=== PATIENT | male | born 1995 | race African-American/Black ===

== ENCOUNTER 2023-08-28 11:56 | Emergency (ER) | payer OTHER, SELFPAY ==
[2023-08-28] MEDS: DILAUDID 1 MG IM (12:23)
--- NOTE | 2023-08-28 14:02 | ED.MUSCINJ ---
HPI-Injury
<Yasmani Murdock PA-C - Last Filed: 09/02/23 09:02>
General
Chief Complaint: Musculo-Skeletal Complaint
Source: patient
Exam Limitations: none
Time Seen by Provider: 08/28/23 12:10
Travel History
Have you had any contact with someone who has COVID-19?: No
Do you have any symptoms of coronavirus? Fever > 100 degrees, chills, cough, shortness of breath, sore throat, loss of taste or smell, muscle aches, or headache?: No
History of Present Illness-Injury
Initial Injury comments:
27-year-old male [id number] presents complaining of left shoulder pain. He presents from shelter. He states he was trying to get up onto his bunk bed and slipped and was holding on with his left arm. Since then has had pain to the left
shoulder. No other complaints at this time
Phy Exam
<Yasmani Murdock PA-C - Last Filed: 09/02/23 09:02>
Physical Exam
Physical Exam:
General: Well-appearing male no acute respiratory distress
Musculoskeletal exam: Deformity noted to left shoulder. He is tender about the left shoulder.
Neurologic: Good sensation light touch bilateral upper extremities
Vascular: 2+ radial pulse left wrist
Injury Course
<Yasmani Murdock PA-C - Last Filed: 09/02/23 09:02>
Orders/Labs/Results
Orders:
Orders
08/28/23 12:15
CR Shoulder, Trauma - Left Urgent
Comment:
Reason For Exam: pain, deformity
08/28/23 12:17
HYDROmorphone [Dilaudid] 1 mg IM NOW STA
08/28/23 14:00
Propofol [Diprivan] 20 ml .ROUTE .STK-MED
08/28/23 14:13
CR Shoulder, Trauma - Left Urgent
Comment:
Reason For Exam: post reduction, portable
<Nahid Sweeney DO - Last Filed: 08/28/23 14:58>
Orders/Labs/Results
Orders:
Orders
08/28/23 12:15
CR Shoulder, Trauma - Left Urgent
Comment:
Reason For Exam: pain, deformity
08/28/23 12:17
HYDROmorphone [Dilaudid] 1 mg IM NOW STA
08/28/23 14:00
Propofol [Diprivan] 20 ml .ROUTE .ST-MED
08/28/23 14:13
CR Shoulder, Trauma - Left Urgent
Comment:
Reason For Exam: post reduction, portable
Procedures
<Yasmani Murdock PA-C - Last Filed: 09/02/23 09:02>
Moderate Sedation
ASA Risk Score: Class II
Chart and allergies reviewed: Yes
Consent for anesthesia obtained: Yes
Time out completed (validating right patient & procedure): Yes
History of difficult intubation: No
Airway free of obstruction: Yes
Patient has a gag reflex: Yes
Patient is able to open mouth: Yes
Patient has no dentures: Yes
Patient has no loose teeth: Yes
Medication administered by Provider during Moderate Sedation: IV Propofol (mg)
Total dose administered: 70
Time drug administered: 14:08
Start Time: 14:08
Stop Time: 14:28
<Yasmani Murdock PA-C - Last Filed: 09/02/23 09:02>
MDM/Problems Addressed
Differential Diagnosis Includes:
Left shoulder deformity after fall. Question fracture versus dislocation versus bone
I personally visualized x-rays of left shoulder which demonstrate anterior dislocation of the glenohumeral joint. An attempt was made to reduce the shoulder without sedation however this was unsuccessful. Written consent was then obtained for
moderate sedation and closed reduction. Moderate sedation performed by emergency room attending with a total of 70 mg of propofol. The shoulder was easily reduced with longitudinal traction and external rotation. Postreduction films show
successful reduction. Patient was recovered from sedation with back to shelter.
<Yasmani Murdock PA-C - Last Filed: 09/02/23 09:02>
*Critical Care Note
Total Time (30-74mins, 75-104mins- exclusive of procedures): Not Applicable
ED Attending Note
<Yasmani Murdock PA-C - Last Filed: 09/02/23 09:02>
-
Portions of this chart may have been created with voice recognition software.� Occasional wrong word or��sound alike� substitutions may have occurred due to the inherent limitations of voice recognition software.
<Nahid Sweeney DO - Last Filed: 08/28/23 14:58>
ED Attending Note
Patient seen and examined by attending physician: Yes
I performed the substantive portion of visit, reviewed & personally made and approve the management plan that is documented in note by myself or GALLO.: Yes
ED Attending Note:
Patient 27-year-old ambidextrous male who presents with left shoulder dislocation. Confirmed on x-ray. Required sedation to get adequate analgesia for reduction. Reduced easily neurovascularly intact. Patient will be discharged to follow-up with
orthopedics
Discharge Plan
Departure
Patient Disposition: Home (Routine Discharge)
Date of Disposition: 08/28/23
Time of Disposition: 15:04
Patient with high blood pressure during this ER visit?: No
Discharge Problem:
Dislocated shoulder
Instructions: Shoulder Dislocation (DC), MODERATE SEDATION ADULT
Referrals:
[facility] [Family Provider] -
Activity Restrictions/Additional Instructions:
Use sling for support. You may take Tylenol for pain. Follow-up with orthopedics if needed for further evaluation
Interventions
Interventions:
*Risk Screen - Suicide Last Done: 08/28/23 12:02
*General Assessment Last Done: 08/28/23 12:02
*Neglect/Abuse Screening Last Done: 08/28/23 12:02
ED- Fall Risk Assessment Last Done: 08/28/23 13:10
*ED COVID-19 Vaccine History Last Done: 08/28/23 12:02
*Nursing Disposition Last Done: 08/28/23 15:15
ED-Musculoskeletal Assessment Last Done: 08/28/23 12:02
Discharge Date and Time
Discharge Date/Time: 08/28/23 15:15
Print Language: [place]
[2023-08-28 14:06] VITALS: BP 138/89
[2023-08-28 14:09] VITALS: BP 138/89
[2023-08-28 14:13] VITALS: BP 130/99
[2023-08-28 14:23] VITALS: BP 138/101
[2023-08-28 14:38] VITALS: BP 149/97
[2023-08-28 15:08] VITALS: BP 136/87
== END 2023-08-28 15:15 | disposition home or self-care (01) ==
LOC: EMR 11:56
PROVIDERS: EMERGENCY PHYSICIAN Emergency Medicine
DX: S43.085A Other dislocation of left shoulder joint, initial encounter (principal); X58.XXXA Exposure to other specified factors, initial encounter; Y93.89 Activity, other specified; Y92.143 Cell of prison as the place of occurrence of the external cause
CPT/HCPCS: 99285; 23650; 99152; 73030